=== PATIENT | male | born 1965 | race Caucasian/White ===

== ENCOUNTER 2021-03-05 14:59 | Outpatient (CLI) | payer OTHER, SELFPAY ==
--- NOTE | 2021-03-05 14:15 | DI.RAD_ITS ---
Exam(s) XR HIP RT COMPLETE AP PELVIS EXAM: XR HIP RT COMPLETE AP PELVIS CLINICAL HISTORY: pain in hip. TECHNIQUE: 2D digital imaging was performed. COMPARISON: CR ORTHO PELVIS AND LAT HIP RT 1 VW from 09/30/2019 FINDINGS: There is no evidence of pelvic nor hip fracture but there is significant degenerative changes in the right hip joint mild joint space narrowing and marginal osteophytes in the right femoral head again n oted, further increased in size when compared to 10/14. The opposite-left hip remains unremarkable. Sacroiliac joints unremarkable. IMPRESSION: DATA REPOSITORY: RADIATION DOSE DELIVERED:
--- OUTSIDE RECORDS SUMMARY | 2021-03-05 15:01 | XMS_ITS ---
:1965 Author Care Team Providers Name Role Phone ALESSIO MIRANDA MD Primary Care Provider [phone] Allergies Code Code System Name Reaction Severity Status Onset Insect Venom Anaphylaxis ? Active ? NKDA ? Medications Name Status Start Date Stop Date ? ? Auvi-Q 0.3 mg/0.3 mL injection, auto-injector Completed 02/19/2016 1 (one) Soln Auto-inj: as needed cephalexin 500 mg capsule Completed ? 2017 neomycin 3.5 mg/g-polymyxin B Completed ? 10,000 unit/g-dexameth 0.1 % eye oint Problems Name Status Onset Date Source ? Hyperlipidemia Active ? History Anemia Active ? History Epididymitis Active ? History Lateral Epicondylitis Active ? History Strain of Muscle And/or Tendon of Thigh Active ? History Adult Health Examination Active ? 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 Histor y Procedure by Method Unknown ? History Procedures Date Name Performed by ? 05/09/2017 Colonoscopy Information not avai lable 08/25/2003 Vasectomy Information not avai lable ? Hernia Repair Information not avai lable Notes: infant 1966. 05/13/2018 XR, Hip, Unilateral, 2 or 3 View [facility] Radiology (Internal) [address] [place] [address] (Work Place) 09/30/2019 XR, Hip + Pelvis, Unilateral, 1 View [facility] Radiology (Internal) [address] [place] [address] (Work Place) Results Lab Results Date Name Specimen Result Interpretation Description Value Range Status Address ? 05/23/2020 CBC W/ Auto BLD ? Wbc 6.0 5.0-10.0 Final [place] Diff 10*3/uL 10*3/uL [facility] ab (Internal) : [address] ? ? BLD Low Rbc 3.97 4.60-6.00 Final [place] 10*6/uL 10*6/uL [facility] (Internal) : [address] ? ? BLD Low Hgb 12.3 g/dL 14.0-18.0 Final Nort h g/dL [facility] (Internal) : [address] ? ? BLD Low Hct 37.6 % 41.0-51.0 Final [facility] L ab (Internal) : [address] ? ? BLD ? Mcv 94.7 fL 80.0-96.0 Final [facility] L ab (Internal) : [address] ? ? BLD ? Mch 31.0 pg 26.0-32.0 Final [facility] L [facility] (Internal) : [address] ? ? BLD ? Mchc 32.7 g/dL 31.0-35.0 Final Nort h g/dL [facility] (Internal) : [address] ? ? BLD ? Rdw 12.2 % 11.5-14.5 Final [facility] L ab (Internal) : [address] ? ? BLD ? Plt 256 130-450 Final [place] 10*3/uL 10*3/uL [facility] (Internal) : [address] ? ? BLD ? Anc 4.31 ? Final [place] 10*3/uL [facility] (Internal) : [address] ? ? BLD High Nlr 4.18 0.00-3.20 Final [facility] (Internal) : [address] ? ? BLD ? Neutro 72.4 % 40.0-75.0 Final [facility] L ab (Internal) : [address] ? ? BLD Low Lymph 17.3 % 20.0-50.0 Final [facility] L ab (Internal) : [address] ? ? BLD ? [place] 7.9 % 2.0-10.0 % Final [facility] (Internal) : [address] ? ? BLD ? Eos 1.5 % 1.0-6.0 % Final [facility] (Internal) : [address] ? ? BLD ? Baso 0.7 % 0.0-1.0 % Final [facility] (Internal) : [address] ? ? BLD ? Ig 0.2 % 0.0-0.9 % Final [facility] (Internal) : [address] 05/23/2020 Lipid Panel, S High Chol 238 mg/dL 50-200 Karma l [place] Serum mg/dL [facility] (Internal) : [address] ? ? S ? Trig 91 mg/dL 10-150 Final [place] mg/dL [facility] (Internal) : [address] ? ? S ? Hdl 50 mg/dL 40-60 Final [place] mg/dL [facility] (Internal) : [address] ? ? S High Ldl 170 mg/dL 0-130 Final [place] mg/dL [facility] (Internal) : [address] 05/23/2020 PSA, Serum or S ? PSA 0.6 NG/mL 0.0-4.0 Fi nal [place] Plasma Scrn NG/mL [facility] (Internal) : [address] 05/17/2019 CBC W/ Auto BLD Low Wbc 4.9 5.0-10.0 Final [place] Diff 10*3/uL 10*3/uL [facility] (Internal) : [address] ? ? BLD Low Rbc 4.29 4.60-6.00 Final [place] 10*6/uL 10*6/uL [facility] (Internal) : [address] ? ? BLD Low Hgb 12.9 g/dL 14.0-18.0 Final Nort h g/dL [facility] (Internal) : [address] ? ? BLD Low Hct 40.0 % 41.0-51.0 Final [facility] (Internal) : [address] ? ? BLD - Mcv 93.2 fL 80.0-96.0 Final [facility] ([facility] : [address] ? ? BLD - Mch 30.1 pg 26.0-32.0 Final [facility] L ab (Internal) : [address] ? ? BLD - Mchc 32.3 g/dL 31.0-35.0 Final Nort h g/dL [facility] (Internal) : [address] ? ? BLD - Rdw 11.7 % 11.5-14.5 Final [facility] (Internal) : [address] ? ? BLD - Plt 254 130-450 Final [place] 10*3/uL 10*3/uL [facility] (Internal) : [address] ? ? BLD - Anc 2.73 ? Final [place] 10*3/uL [facility] (Internal) : [address] ? ? BLD - Neutro 55.9 % 40.0-75.0 Final [facility] (Internal) : [address] ? ? BLD - Lymph 31.1 % 20.0-50.0 Final [facility] (Internal) : [address] ? ? BLD - [place] 9.6 % 2.0-10.0 % Final [facility] (Internal) : [address] ? ? BLD - Eos 2.2 % 1.0-6.0 % Final [facility] (Internal) : [address] ? ? BLD - Baso 0.8 % 0.0-1.0 % Final [facility] (Internal) : [address] ? ? BLD - Ig 0.4 % 0.0-0.9 % Final [facility] (Internal) : [address] 05/17/2019 BMP, Serum or S - g/r 96 mg/dL 74-106 [place] Plasma mg/dL [facility] (Internal) : [address] ? ? S - Bun 10 mg/dL 9-20 mg/dL Final Nort [facility] (Internal) : [address] ? ? S - Crea 0.90 0.66-1.25 Final [place] mg/dL mg/dL [facility] (Internal) : [address] ? ? S - Ca 9.1 mg/dL 8.4-10.2 Final [place] mg/dL [facility] (Internal) : [address] ? ? S - Na 141 137-145 Final [place] mmol/L mmol/L [facility] (Internal) : [address] ? ? S - K 3.9 3.5-5.1 Final [place] mmol/L mmol/L [facility] (Internal) : [address] ? ? S - Cl 105 98-107 Final [place] mmol/L mmol/L [facility] (Internal) : [address] ? ? S - Tco2 27.0 22.0-30.0 Final [place] mmol/L mmol/L [facility] (Internal) : [address] 05/17/2019 Lipid Panel, S High Chol 222 mg/dL 50-200 Kar[place] Serum mg/dL [facility] (Internal) : [address] ? ? S - Trig 97 mg/dL 10-150 Final [place] mg/dL [facility] (Internal) : [address] ? ? S - Hdl 53 mg/dL 40-60 Final [place] mg/dL [facility] (Internal) : [address] ? ? S High Ldl 150 mg/dL 0-130 Final [place] mg/dL [facility] (Internal) : [address] 05/17/2019 PSA, Serum or S - PSA 0.5 NG/mL 0.0-4.0 Fi nal [place] Plasma Scrn NG/mL [facility] (Internal) : [address] 05/14/2018 CBC W/ Auto BLD - Wbc 5.0 5.0-10.0 Final [place] Diff 10*3/uL 10*3/uL [facility] (Internal) : [address] ? ? BLD Low Rbc 4.11 4.60-6.00 Final [place] 10*6/uL 10*6/uL [facility] (Internal) : [address] ? ? BLD Low Hgb 12.2 g/dL 14.0-18.0 Final Nort h g/dL [facility] (Internal) : [address] ? ? BLD Low Hct 37.9 % 41.0-51.0 Final [facility] L ab (Internal) : [address] ? ? BLD - Mcv 92.2 fL 80.0-96.0 Final [facility] L ab (Internal) : [address] ? ? BLD - Mch 29.7 pg 26.0-32.0 Final [facility] L ab (Internal) : [address] ? ? BLD - Mchc 32.2 g/dL 31.0-35.0 Final Nort h g/dL [facility] (Internal) : [address] ? ? BLD - Rdw 12.0 % 11.5-14.5 Final [facility] ab (Internal) : [address] ? ? BLD - Plt 250 130-450 Final [place] 10*3/uL 10*3/uL [facility] (Internal) : [address] ? ? BLD - Anc 2.86 ? Final [place] 10*3/uL [facility] (Internal) : [address] ? ? BLD - Neutro 57.3 % 40.0-75.0 Final [facility] L [facility] (Internal) : [address] ? ? BLD - Lymph 30.1 % 20.0-50.0 Final [facility] L [facility] (Internal) : [address] ? ? BLD - [place] 8.2 % 2.0-10.0 % Final [facility] L ab (Internal) : [address] ? ? BLD - Eos 3.4 % 1.0-6.0 % Final [facility] L ab (Internal) : [address] ? ? BLD - Baso 0.8 % 0.0-1.0 % Final [facility] (Internal) : [address] ? ? BLD - Ig 0.2 % 0.0-0.9 % Final [facility] (Internal) : [address] 05/14/2018 Lipid Panel, S High Chol 214 mg/dL 50-200 Karma l [place] Serum mg/dL [facility] (Internal) : [address] ? ? S - Trig 82 mg/dL 10-150 Final [place] mg/dL [facility] (Internal) : [address] ? ? S - Hdl 48 mg/dL 40-60 Final [place] mg/dL [facility] (Internal) : [address] ? ? S High Ldl 150 mg/dL 0-130 Final [place] mg/dL [facility] (Internal) : [address] 02/24/2017 Venipuncture BLD ? Venpn* ? ? Final [facility] (Internal) : [address] 02/24/2017 CBC W/ Auto BLD ? Wbc 5.1 5.0-10.0 Final [place] Diff 10*3/uL 10*3/uL [facility] (Internal) : [address] ? ? BLD Low Rbc 4.34 4.60-6.00 Final [place] 10*6/uL 10*6/uL [facility] (Internal) : [address] ? ? BLD Low Hgb 13.1 g/dL 14.0-18.0 Final Nort h g/dL [facility] (Internal) : [address] ? ? BLD Low Hct 39.8 % 41.0-51.0 Final [facility] L ab (Internal) : [address] ? ? BLD ? Mcv 91.7 fL 80.0-96.0 Final [facility] L ab (Internal) : [address] ? ? BLD ? Mch 30.2 pg 26.0-32.0 Final [facility] L ab (Internal) : [address] ? ? BLD ? Mchc 32.9 g/dL 31.0-35.0 Final Nort h g/dL [facility] (Internal) : [address] ? ? BLD ? Rdw 11.9 % 11.5-14.5 Final [facility] L ab (Internal) : [address] ? ? BLD ? Plt 263 130-450 Final [place] 10*3/uL 10*3/uL [facility] (Internal) : [address] ? ? BLD ? Anc 2.80 ? Final [place] 10*3/uL [facility] (Internal) : [address] ? ? BLD ? Neutro 54.4 % 40.0-75.0 Final [facility] L ab (Internal) : [address] ? ? BLD ? Lymph 33.7 % 20.0-50.0 Final [facility] L ab (Internal) : [address] ? ? BLD ? [place] 8.4 % 2.0-10.0 % Final [facility] (Internal) : [address] ? ? BLD ? Eos 2.3 % 1.0-6.0 % Final [facility] (Internal) : [address] ? ? BLD ? Baso 1.0 % 0.0-1.0 % Final [facility] (Internal) : [address] ? ? BLD ? Ig 0.2 % 0.0-0.9 % Final [facility] (Internal) : [address] 02/24/2017 Lipid Panel, S High Chol 258 mg/dL 50-200 [place] Serum mg/dL [facility] (Internal) : [address] ? ? S ? Trig 79 mg/dL 10-150 Final [place] mg/dL [facility] (Internal) : [address] ? ? S ? Hdl 57 mg/dL 40-60 Final [place] mg/dL [facility] (Internal) : [address] ? ? S High Ldl 185 mg/dL 0-130 Final [place] mg/dL [facility] (Internal) : [address], [place] [address] Past Encounters 05/22/2020 Adult Health Examination Alessio Miranda MD: [address] [place] [address], Ph. 04/05/2020 Psoas Syndrome Alessio Miranda MD: [address] [place] [address], Ph. 09/30/2019 Pain in Right Hip Joint Justyna Sandoval PA-C: [address] [facility], [address], [place] [address], Ph. 09/16/2019 Pain in Right Hip Joint Alessio Miranda MD: [address] [place] [address], Ph. Social History Tobacco Smoking Status Never Smoker Vaccine List Vaccine Type COVID-19 vaccine, vector-nr, [id number], PF , 0.5 mL 11/22/2020 influenza, injectable, quadrivalent 05/25/2019 influenza, injectable, quadrivalent, pre servative free 05/22/2020 influenza, seasonal, injectable 06/11/2010 05/25/2016 influenza, seasonal, injectable, preserv ative free 07/25/2009 06/03/2011 Tdap 10/29/2010 Plan of Care Reminders Provider Appointments None ? ? recorded. Lab None ? ? recorded. Referral None ? ? recorded. Procedures None ? ? recorded. Surgeries None ? ? recorded. Imaging None ? ? recorded. Vitals 05/22/2020 02:40PM CPE 40 Height Weight BMI Blood Pressure 173.36 cm 67.4 kg 22.4 kg/m2 110/70 mm[Hg] 04/05/2020 09:00AM Acute 20 Height Weight BMI Blood Pressure 173.36 cm 68.95 kg 22.9 kg/m2 104/66 mm[Hg] 09/30/2019 09:00AM Consult 30 Height Weight BMI 173.36 cm 65.77 kg 21.9 kg/m2 09/16/2019 02:20PM Acute 20 Height Weight BMI Blood Pressure 173.36 cm 69.35 kg 23.1 kg/m2 122/82 mm[Hg] 05/17/2019 02:40PM CPE 40 Height Weight BMI Blood Pressure 173.36 cm 67.39 kg 22.4 kg/m2 118/76 mm[Hg] 05/13/2018 02:00PM CPE 40 Height Weight BMI Blood Pressure 173.99 cm 67.7 kg 22.4 kg/m2 104/64 mm[Hg] 02/24/2017 Weight Blood Pressure 68.35 kg 120/80 mm[Hg] 11/04/2016 Weight Blood Pressure 71.76 kg 128/80 mm[Hg] 08/15/2016 Height Weight Blood Pressure 172.72 cm 70.31 kg 138/86 mm[Hg] 02/19/2016 Height Weight Blood Pressure 172.72 cm 67.95 kg 102/78 mm[Hg] 02/13/2015 Height Weight Blood Pressure 172 cm 67.05 kg 120/76 mm[Hg] 02/14/2012 Height Weight Blood Pressure 175.26 cm 65.77 kg 118/79 mm[Hg] 04/07/2006 Height Weight Blood Pressure 175.26 cm 68.04 kg 112/70 mm[Hg]
== END 2021-03-05 15:00 | disposition home or self-care (01) ==
LOC: DIORS 14:59
PROVIDERS: PCP Family Medicine; Referring Provider Family Medicine; Visit Provider Physician Assistant Surgical
DX: M16.11 Unilateral primary osteoarthritis, right hip (principal)
CPT/HCPCS: 73502

== ENCOUNTER 2021-03-22 03:03 | Outpatient (CLI) | payer OTHER, SELFPAY ==
--- NOTE | 2021-03-22 08:15 | DI.RAD_ITS ---
Exam(s) RF JOINT INJECTION FLUORO GUID EXAM: RF JOINT INJECTION FLUORO GUID CLINICAL HISTORY: R HIP INJ UNDER FLUORO,oa rt hip, m16.11 TECHNIQUE: Fluoroscopy provided. Radiologist not present. CONTRAST MATERIAL: None COMPARISON: No exams were available for comparison FINDINGS: Fluoroscopy was provided for Dr. Cooper during right hip therapeutic injection.. Submitted image(s) reveal needle placement at the lateral aspect of the femoral head-neck junction. Intra-articular contrast was injected. Please refer to the procedure report for complete details. Cumulative Dose: [place]=3.80. mGy IMPRESSION: RADIATION DOSE DELIVERED:
--- NOTE | 2021-03-22 14:26 | W.PROCNOTE ---
Date of service: 03/22/21 Time of Service: 14:26 Procedure Note Date of procedure: 03/22/21 Procedure: Right Hip Injection with Fluoroscopic Guidance Surgeon/Proceduralist/Physician: Ángel Cooper Procedure Diagnosis: Right Hip Osteoarthritis Procedure Indications: León has had persistent pain of the RIGHT hip and groin. Noninvasive measures have been tried. To serve as both diagnostic and therapeutic, an injection under fluoroscopy was recommended. I had discussed the risks of the procedure and the patient elected to proceed. Procedure Description: León was greeted in the flouroscopy room. The correct side was identified and the consent was reviewed with the patient and signed. The patient was then placed in the supine position on the fluoroscopy table. The RIGHT hip was then prepped with Chloraprep. The anterolateral injection starting point was identiifed by bony landmarks and fluoroscopy. The skin and soft tissue in the tract of the injection was anesthetized with 1% Lidocaine. A spinal needle was then inserted deep into the hip joint at the level of the lateral femoral neck under fluoroscopic guidance. A small amount of Omnipaque solution was injected to confirm intraarticular placement. Once confirmed, the hip was injected with 6cc of 0.5% Bupivicaine and 80mg of Depo-Medrol. A bandaid was placed on the injection site. The patient tolerated the procedure well and noted improvement in pre-injection pain.
[2021-03-22] MEDS: methylPREDNISolone ACETATE 80 MG/ML VIAL IM (14:27)
[2021-03-22] MEDS: Omnipaque 300 MG/ML 10 ML BTL IJ (14:28)
[2021-03-22] MEDS: Bupivacaine 0.5% Pres-Free 10 ML VIAL IJ (14:29)
== END 2021-03-22 03:23 ==
PROVIDERS: PCP Family Medicine; Visit Provider Student in an Organized Health Care Education/Training Program
DX: M16.11 Unilateral primary osteoarthritis, right hip (principal); M25.551 Pain in right hip; R10.31 Right lower quadrant pain
CPT/HCPCS: 77002; J1040

== ENCOUNTER 2021-06-12 10:36 | Outpatient (CLI) | payer OTHER, SELFPAY ==
--- NOTE | 2021-06-12 10:30 | RT.EKG_ITS ---
APPROVED REPORT Exam: Resting ECG Reason for Exam: anton Patient Location: O HR:55 bpm ECG Measurements Heart Rate 55 AXIS SC 176 P 36 QRSd 96 QRS 23 QT 390 T 38 QTc 373 Conclusion Sinus rhythm...normal P axis, V-rate 50- 99 Normal Electrocardiogram
== END 2021-06-12 10:37 | disposition home or self-care (01) ==
LOC: DI.CARD 10:37
PROVIDERS: PCP Family Medicine; Visit Provider Internal Medicine Cardiovascular Disease
DX: R00.1 Bradycardia, unspecified (principal)
CPT/HCPCS: 93010

== ENCOUNTER 2021-08-13 15:00 | Outpatient (CLI) | payer OTHER, SELFPAY ==
--- NOTE | 2021-08-13 14:00 | DI.RAD_ITS ---
Exam(s) XR PELVIS AP EXAM: XR PELVIS AP INDICATION: preoperative. COMPARISON: CR XR HIP RT COMPLETE AP PELVIS from 03/05/2021 TECHNIQUE: 2D digital imaging was performed. FINDINGS: An AP view of the pelvis with template ball in place was performed. Prominent spurring at the margin of the right femoral head is again noted. There is [id number] right acetabular spurring. DATA REPOSITORY: RADIATION DOSE DELIVERED:
== END 2021-08-13 15:01 | disposition home or self-care (01) ==
LOC: DIORS 15:01
PROVIDERS: PCP Family Medicine; Visit Provider Physician Assistant Surgical
DX: M16.11 Unilateral primary osteoarthritis, right hip (principal)
CPT/HCPCS: 72170

== ENCOUNTER 2021-08-20 04:15 | Outpatient (CLI) | payer OTHER, SELFPAY ==
[2021-08-20 09:02] LABS: HCT 38.5 % (40.0-50.0); HGB 12.4 g/dL (13.5-17.5); MCH 30.2 pg (27.0-33.0); MCHC 32.2 % (32.0-36.0); MCV 93.9 fL (80-95); MPV 9.1 fL (8.0-11.0); Platelet Count 290 10^3/uL (130-400); RDW 11.9 % (11.8-14.1); RDW-SD 40.9 fL; WBC 4.49 10^3/uL (4.4-10.8)
[2021-08-20 10:10] LABS: Anion Gap 7.7 mmol/L (3-11); BUN 18 mg/dL (7-18); CO2 28.3 mmol/L (21.0-32.0); Calcium 8.9 mg/dL (8.5-10.1); Chloride 103 mmol/L (98-107); Glucose 92 mg/dL (74-106); Potassium 4.5 mmol/L (3.5-5.1); Sodium 139 mmol/L (136-145)
[2021-08-20 10:43] LABS: Source Nasal/Nares
[2021-08-20 18:17] LABS: COVID-19 PCR Negative (Negative)
== END 2021-08-20 04:16 | disposition home or self-care (01) ==
LOC: LBO 04:15
PROVIDERS: PCP Family Medicine; Visit Provider Student in an Organized Health Care Education/Training Program
DX: M16.11 Unilateral primary osteoarthritis, right hip (principal); Z01.818 Encounter for other preprocedural examination; Z20.822 Contact with and (suspected) exposure to COVID-19
CPT/HCPCS: 36415; 80048; 85027; 86850; 86900; 86901; 87635

== ENCOUNTER 2021-08-21 08:26 | Day surgery (SDC) | payer OTHER, SELFPAY ==
[2021-08-21] VITALS (8 sets, daily range): BP systolic 122–139; BP diastolic 72–96; PULSE 42–59; RESP 11–18; TEMP 36.3–37; O2SAT 96–100; BMI 22.3
--- NOTE | 2021-08-21 06:57 | PDOC.DSDIS_ITS ---
Discharge Plan Disposition Patient Disposition: HOME Condition: Stable Discharge Details Reason For Visit: Right JOHN Attending Provider: Ángel Cooper Primary Care Provider: India Marie Home Meds and New Rx's Prescriptions: New acetaminophen 500 mg capsule 1,000 mg PO Q8H PRN PRNQty: 90 RF: 0 aspirin 81 mg tablet,delayed release (DR/EC) 81 mg PO BID Qty: 60 RF: 0 celecoxib [Celebrex] 200 mg capsule 200 mg PO BID Qty: 60 RF: 0 pantoprazole [Protonix] 40 mg tablet,delayed release (DR/EC) 40 mg PO DAILY Qty: 30 RF: 0 oxycodone 5 mg tablet 5 mg PO Q4H PRNQty: 18 RF: 0 Discharge Instructions Additional Instructions: Total Hip Discharge Instructions Activity: The most important activity is to walk. You should try to take short walks a few times a day. You have no restrictions on movement or positioning, but do not try to force what you do. You will find some stiffness and weakness with hip flexion (lifting your knee). Do not try to strengthen this too early, continue to practice walking and stairs and this will come. - Outpatient physical therapy can be helpful to help return you to a normal gait and improve your flexibility and strength. This can start around 2 weeks. For some patients, it?s not necessary. Usually this is determined at the time of discharge or at the first post-operative visit. - You should wear the SYL hose on both legs for 2 weeks. Dressing: Keep the surgical dressing in place for at least one week. After the first week it may be removed and replace with light gauze and tape or nothing. It may get wet after 3 days but avoid soaking the dressing. If it gets wet, just lightly pat dry. It is important to always keep some gauze between skin folds, especially when you are sitting. Spend some time with the wound exposed when you are lying flat as the incision does wrinkle onto itself. Medications: - You should take Tylenol and an anti-inflammatory Celebrex as your primary pain control medications. If the Celebrex is too expensive or not covered, please call the office for another alternative (Advil/Ibuprofen or Naproxen/Aleve). - You have been prescribed a stronger pain medication Oxycodone for breakthrough pain, take as needed as prescribed. - You have also been prescribed a stomach acid reduction agent Pantoprozole to help reduce stomach acid and reflux. - You will be taking Aspirin 81mg twice a day for DVT prevention unless instructed otherwise. - If you have constipation you should take Colace or Miralax (both [id number]). It takes most people 3-4 days to have a bowel movement. Follow-up: 2 weeks If you have any acute concerns or questions, please do not hesitate to contact the office at [phone]. You may contact Dr. Cooper with any questions after hours through the hospital at [phone] or on his cell phone at [phone]. Referrals: Ángel Cooper MD [ [facility] STAFF PHYSICIAN] - Equipment/Supplies: Walker Activity:: Activity as Tolerated Remove Dressings/Wound Care:: Do Not Remove Shower/Bathe:: 72 hours Diet:: As Tolerated Discharge Orders Discharge Orders: Discharge Order (Routine); Ordered 08/21/21 Ordered By: Tanesha Rosenthal DS: Diagnosis Discharge Diagnosis (1) Osteoarthritis of right hip: Status: Acute
--- NOTE | 2021-08-21 06:57 | ANES.PREOP_ITS ---
General Info Date of Service Date Performed: 08/21/21 Height: 5 ft 9 in Weight: 68.492 kg Body Mass Index (BMI): 22.3 Surgical Procedure: Operation Date: 08/21/21 11:20 Proposed Procedures Side Surgeon p Hip Total Hip Anterior Right Ángel Cooper MD Meds Allergies and Home Medications Allergies Allergy/AdvReac Type Severity Reaction Status Date / Time insect venom Allergy Verified 08/21/21 08:47 Home Medication Medication Instructions Recorded acetaminophen 1,000 mg PO Q8H PRN PRN #90 cap 08/21/21 aspirin 81 mg PO BID #60 tab 08/21/21 celecoxib [Celebrex] 200 mg PO BID #60 cap 08/21/21 oxycodone 5 mg PO Q4H PRN #18 tab 08/21/21 pantoprazole [Protonix] 40 mg PO DAILY #30 tab 08/21/21 Current Visit Medications: Current Medications Generic Name Dose Route Start Last Admin Trade Name Freq PRN Reason Stop Dose Admin Acetaminophen 1,000 mg 08/21/21 06:00 Acetaminophen 500 Mg Tab PO 08/21/21 16:00 PREOP AMY Celecoxib 400 mg 08/21/21 06:00 Celecoxib 200 Mg Cap PO 08/21/21 16:00 PREOP AMY Tranexamic Acid 1,000 mg/ 60 mls @ 360 mls/hr 08/21/21 06:00 Sodium Chloride IV 08/21/21 16:00 PREOP AMY Ringer's Solution 1,000 mls @ 80 mls/hr 08/21/21 06:00 IV 09/19/21 23:59 INFUSION AMY Cefazolin Sodium/Dextrose 2 gm in 50 mls @ 100 mls/hr 08/21/21 06:00 Ancef Duplex IVPB 08/21/21 16:00 PREOP [facility] IV Miscellaneous Supplies 1 each 08/21/21 06:00 Iv Access IV 09/19/21 23:59 DIRECTED AMY Sodium Chloride 0 ml 08/21/21 06:00 Normal Saline Flush 10 Ml Syr IV 09/19/21 23:59 PRN PRN Sodium Chloride 0 ml 08/21/21 06:00 Normal Saline 10 Ml Vial IJ 09/19/21 23:59 DIRECTED PRN Sterile Water 0 ml 08/21/21 06:00 Water,Injection,Sterile 10 Ml Vial IJ 09/19/21 23:59 DIRECTED PRN PFSH Active Problems Active Problems: Problem Status Onset Code Osteoarthritis of right hip M16.11 Bradycardia R00.1 Dizziness R42 Medical History Medical History Anemia COVID-19 pt. states end of april Epicondylitis Epididymitis HLD (hyperlipidemia) Strain of muscle, fascia and tendon of the posterior muscle group at thigh level, left thigh, initial encounter Surgical History Surgical History Colonoscopy - IV Sedation (05/09/17) H/O hernia repair H/O vasectomy Hx of colonoscopy Tobacco Smoking/Tobacco Use Status: Never Alcohol Alcohol Intake: current Alcohol intake frequency: 0-2 drinks per day Substance Use Substance use: Never Substance use type: does not use Vital Signs and Lab Results Vital Signs Most Recent Vital Signs in EMR: Temp Pulse Resp BP Pulse Ox 36.6 C 50 L 16 139/80 99 08/21/21 08:54 08/21/21 08:54 08/21/21 08:54 08/21/21 08:54 08/21/21 08:54 Lab Results Blood Type / Crossmatch: Patient ABO/Rh O Positive 08/20/21 08:59 08/20/21 Antibody Screen NEGATIVE 08/20/21 08:59 08/20/21 Complete Blood Count: White Blood Count 4.49 10^3/uL (4.4-10.8) 08/20/21 08:59 08/20/21 Red Blood Count 4.10 10^6/uL (4.36-5.78) L 08/20/21 08:59 08/20/21 Hemoglobin 12.4 g/dL (13.5-17.5) L 08/20/21 08:59 08/20/21 Hematocrit 38.5 % (40.0-50.0) L 08/20/21 08:59 08/20/21 Platelet Count 290 10^3/uL (130-400) 08/20/21 08:59 08/20/21 Complete Metabolic Panel: Sodium Level 139 mmol/L (136-145) 08/20/21 08:59 08/20/21 Potassium Level 4.5 mmol/L (3.5-5.1) 08/20/21 08:59 08/20/21 Chloride Level 103 mmol/L (98-107) 08/20/21 08:59 08/20/21 Carbon Dioxide Level 28.3 mmol/L (21.0-32.0) 08/20/21 08:59 08/20/21 Blood Urea Nitrogen 18 mg/dL (7-18) 08/20/21 08:59 08/20/21 Creatinine 1.0 mg/dL (0.70-1.30) 08/20/21 08:59 08/20/21 Estimated GFR/1.73 m2 >= 60.00 (mL/min/1.73m2) 08/20/21 08:59 08/20/21 Calcium Level 8.9 mg/dL (8.5-10.1) 08/20/21 08:59 08/20/21 Glucose Level 92 mg/dL (74-106) 08/20/21 08:59 08/20/21 Liver Function Panel: No Data to Display Coagulation Panel: No Data to Display Cardiac Panel: No Data to Display Arterial Blood Gas: No Data to Display Venous Blood Gas: No Data to Display Pancreas Panel: No Data to Display Thyroid Panel: No Data to Display Infectious Disease: Coronavirus (COVID-19)(PCR) Negative (Negative) 08/20/21 09:35 08/20/21 Coronavirus 2019 Source Nasal/Nares 08/20/21 09:35 08/20/21 Blood Cultures: No Data to Display Toxicology Panel: No Data to Display Imaging and Studies Imaging and Studies Study information below may be from another EMR and interpreted by another provider. Please see original notes in EMR for more complete details. EKG Summary: 05/2021: sinus Anesthesia Assessment and Plan Anesthesia History Personal History: No History of Anesthesia Complications Family History: No Family History of Anesthesia Complications Exercise Tolerance Exercise Tolerance: Metabolic Equivalents>4 Cardiac & Pulmonary Exam Cardiac Exam: Normal S1/S2 Heart Sounds Pulmonary Exam: Clear Bilateral Breath Sounds Implantable Cardiac Device Does patient have a Pacemaker or an ICD?: No Airway Exam Known Difficult Airway: No Mallampati Class: 2 Mouth Opening: Normal (> 3cm) Thyromental Distance: Less than 3 cm Neck Range of Motion: Full ROM Neck Circumference: Normal Teeth Condition: Normal Dentition ASA Classification ASA Score: ASA 2 Emergency Case?: No NPO Status NPO Status: NPO Clears >2 hours, Solids >8 hours Anesthesia Plan Resuscitation Status: Full Code Anesthesia Technique: Spinal Anesthesia Airway Planned: Natural Airway Monitors Used: Standard Monitors Preoperative Comments:: 55 yo male for right JOHN. Sig PMHx: never smoker, occ EtOH, denies major issues.
[2021-08-21] MEDS: Acetaminophen 500 MG TAB 1000 MG PO (09:08)
[2021-08-21] MEDS: Celecoxib 200 MG CAP 400 MG PO (09:09)
[2021-08-21] MEDS: Lactated Ringers 1,000 ML 80 ML IV (09:29)
[2021-08-21] MEDS: ceFAZolin 2 GM/50 ML BAG IVPB (10:31)
--- NOTE | 2021-08-21 11:39 | DI.RAD_ITS ---
Exam(s) XR HIP RT IN OR EXAM: XR HIP RT IN OR CLINICAL HISTORY: OSTEOARTHRITIS RIGHT HIP TECHNIQUE: 2D and realtime digital imaging was performed. COMPARISON: No exams were available for comparison FINDINGS: C-arm fluoroscopy was utilized by Dr. Cooper during placement of right hip prosthesis. Hard copie s show acetabular and femoral components in good position. IMPRESSION: RADIATION DOSE DELIVERED: Kar=3.23 mGy
[2021-08-21] MEDS: Bupivacaine 0.25% Pres-Free 30 ML VIAL (11:42)
[2021-08-21] MEDS: Ketorolac 30 MG/ML VIAL (11:42)
--- NOTE | 2021-08-21 12:40 | W.ANESPOSTOP ---
Postoperative Evaluation Date, Time and Location Date Performed: 08/21/21 Time Performed: 12:41 Patient Location: PACU Vital Signs Most Recent Imported Vital Signs: Most Recent Vital Signs Temp Pulse Resp BP Pulse Ox 36.5 C 42 L 11 L 128/96 H 100 08/21/21 12:31 08/21/21 12:31 08/21/21 12:31 08/21/21 12:31 08/21/21 12:31 Pain Score Most Recent Pain Score: Most Recent Pain Score Pain Level 3 08/21/21 12:31 Assessment Mental Status: Awake (Alert & Oriented to Patient Baseline) Airway and Respiratory Function: Patent airway with normal (patient baseline) respiratory exam Cardiovascular Function: Hemodynamically Stable Hydration Status: Adequately Hydrated Nausea & Vomiting: No Nausea or Vomiting Pain: Pt. Denies Any Pain Peripheral Nerve Block: Patient did not receive a nerve block
[2021-08-21] MEDS: oxyCODONE 5 MG TAB PO (12:59)
--- NOTE | 2021-08-21 13:35 | PT.INIE ---
Date of service: 08/21/21 Time of Service: 13:35 PT Notes Visit Reasons: Right JOHN Physical Therapy Day Surgery Initial Evaluation Date: 08/21/2021 Referring Doctor: MADELEINE Zhu PT Orders: PT CONSULT: S/P Ortho Surgery Precautions: WBAT on R LE with AD. Patient Profile/Admitting Diagnosis: León is a 55-year-old female with osteoarthritis of the R hip and is S/P right anterior total hip arthroplasty on postoperative day 0. PMHX: Medical History Anemia Epicondylitis Epididymitis HLD (hyperlipidemia) Strain of muscle, fascia and tendon of the posterior muscle group at thigh level, left thigh, initial encounter Surgical History Colonoscopy - IV Sedation (05/09/17) H/O hernia repair H/O vasectomy Hx of colonoscopy Social History/Home Situation: Lives with in a private home with 4 steps to enter with no rails. Still works time checker. Independent with all aspects of ADLs prior to surgery. No falls in the past 12 months. Equipment Owned/DME: Bilateral axillary crutches Subjective: Agreeable to PT consult. Reports pain in the right hip that 5/10 at rest. Denies numbness and tingling in B LE. Denies headache, chest pain, and lightheadedness throughout session. Objective: General Observation: Mepilex Ag over surgical incision. TEDS to B LE. Mental Status: Alert and oriented x1 Pain: 5/10 in the right hip and thigh at rest that subsided with ambulation ROM: Right Lower Extremity: Hip flexion WFL. Hip abduction WFL. Knee flexion WFL. Ankle dorsiflexion WFL. Ankle plantarflexion WFL. Left Lower Extremity: Hip flexion WFL. Hip abduction WFL. Knee flexion WFL. Ankle dorsiflexion WFL. Ankle plantarflexion WFL. Strength: Right Lower Extremity: Hip flexors 4/5. Hip abductors 4/5. Knee flexors 5/5. Knee extensors 4/5. Ankle dorsiflexors 5/5. Ankle plantarflexors 5/5. Left Lower Extremity:Hip flexors 5/5. Hip abductors 5/5. Knee flexors 5/5. Knee extensors 5/5. Ankle dorsiflexors 5/5. Ankle plantarflexors 5/5. Sensation: Intact as to pain and light pressure in bilateral lower extremities Bed Mobility/Transfers: Supine to sit independent Sit to stand contact-guard assist Stand to sit standby assist Bed to chair standby assist Gait: Instructed patient with level surface ambulation of 100 feet using bilateral axillary crutches with three-point gait pattern, weight bearing as tolerated on the right LE requiring only standby assist and minimal verbal cues for safe technique. Indicated that pain level subsided with movement and weight bearing. No LOB. No SOB. Stairs: Educated and trained on safe stair negotiation technique of 6 x 4?inch steps and 4 x 6 inch steps while using bilateral crutches with step-to pattern requiring contact-guard assist with no report of increased pain. No LOB. No SOB. Balance: Static Sitting: Normal Dynamic Sitting: Normal Static Standing: Fair Dynamic Standing: Fair Special Tests: Mobility Limitations Standardized Measure [facility] AM-PAC 6 clicks Basic Mobility Inpatient Short Form: Raw Score: 23 CMS Score: 11% deficit Informed Consent/Education: Patient instructed in purpose of PT consult. Education and training on initial set of exercises that can be done at home have been completed with patient. Assessment: León requires the use of bilateral axillary crutches for all mobility ADL performance to maximize independence and reduce fall risk. Will have the support of his DSU Nurse Valeria as he recovers. Patient presents with clinical signs and symptoms consistent with current/admitting diagnoses that have resulted to mobility limitations and gait instability as demonstrated by the following impairment level findings: 1. Decreased strength to right hip major muscle groups 2. Impaired standing balance Impairments are contributing to the following functional limitations: 1. Inability to safely ambulate without assistive device 2. Increase completion time for mobility ADL performance 3. Increased fall risk Patient is assessed as a 88101 moderate complexity based on the following: History: 55 [id number] with impairment level findings, functional limitations, and past medical history as indicated above Examination: Demonstrable impairment in strength, balance, and mobility level with underlying impairments and functional limitations as documented above Presentation: Evolving Decision Makin moderate complexity Goals: N/A. PT evaluation and 1-2 treatment sessions only for functional mobility training using recommended AD and for HEP instruction. Plan of Care/Treatment Plan: N/A. PT evaluation and 1-2 treatment session only for functional mobility training using recommended AD and for HEP instruction. DISCHARGE RECOMMENDATIONS: [] Home with no services [] [] Home with services [specify] [X] Home with outpatient PT. Home when medically cleared by orthopedic surgeon. May benefit from outpatient PT services in order to facilitate return to independent community ambulation and to full return to vocational activities without an assistive device. [] SNF for continued rehabilitation [] [] Residential Care [] [] SNF versus LTC based on ability to participate and progress [] TREATMENT CODE/TIME: 27562 x 20 minutes, 57111 x 24 minutes beginning at 13:35 PM. Thank you for the opportunity to participate in the care of this patient. Alice Duggan PT, DPT, CLT [facility] [place], [place]
--- NOTE | 2021-08-21 22:07 | ROE_ITS ---
Date of service: 08/21/21 Time of Service: 12:07 Operative Note Operative Note DATE OF PROCEDURE: 08/21/21 PRE-OP DIAGNOSIS: Right Hip Osteoarthritis POST-OP DIAGNOSIS: same PROCEDURE: Right Anterior Total Hip Arthroplasty SURGEON: Ángel Cooper SPRINKLER INSPECTOR: Tanesha Rosenthal ANESTHESIA TYPE: Spinal Refer to Anesthesia Record ESTIMATED BLOOD LOSS: 250 PATHOLOGY: none sent TOURNIQUET TIME: 0 COMPLICATIONS: None Patient was transported to: PACU Patient's condition: stable Implants: 1. Depuy [place] Acetabular Component, 56mm 2. Depuy Acetabular Liner, 91x60uc 3. Depuy Corail Standard Collared Femoral Stem, Size 11 4. Depuy Altrx Ceramic Femoral Head, Size 36+12mm Indications: I have seen León in clinic for symptoms of hip arthritis, confirmed with radiographic findings. León has exhausted nonoperative methods and was having significant limitations in daily function and desired better function and less pain. I discussed the technical details of a hip replacement. I explained the risks of the procedure to include, but not limited to, bleeding, infection, pain, stiffness, fracture, damage to nerves and vessels, damage to muscles and tendons, loosening, instability, leg length inequality, need for repeat procedure, blood clot and cardiopulmonary demise. Despite these risks, he elected to proceed. Findings: There was significant signs of arthritis throughout the hip with large osteophytes about the femoral head/neck and the floor of the acetabulum. Procedure Description: León was greeted in the preoperative holding area where the correct side was identified and marked. The consent was reviewed with the patient and signed. The history and physical was updated. All questions were answered. León was taken back to the operating room. A spinal anesthestic was then administered. The feet were wrapped with cast padding and Coban and then placed into the boot liners and then into the boots. Care was taken to protect the skin and make sure the heels were fully down and the boots were stable. The patient was then positioned onto the HANA table. Both legs were held in a neutral position. SCDs were applied. The patient was then slid down onto a peroneal post. Prophylactic antibiotics in the form of Cefazolin were administered. 1g of Tranxemic Acid was given intravenously within 30 minutes of incision. The right leg was then prepped with Chloraprep and draped in a standard fashion. A second prep with Chloraprep was performed prior to placement of a shower-curtain type drape with Iodine impregnated skin protection. A timeout to confirm correct identity, side and site, procedure, allergies, anesthesia, and medical concerns was performed. An obliquely oriented incision was made starting lateral to the ASIS and running distal over the Tensor Fascia Nilda (TFL) muscle belly toward the fibular head, approximately 10cm. The skin and soft tissue was dissected sharply, through Lucila?s fascia, and to the fascia of the TFL. With the fascia and superior border of the IT band identified, the fascia was incised with a new knife just above any perforators from the IT band. The TFL muscle belly was bluntly dissected away from the fascia and moved laterally. The fat between TFL and rectus was identified to ensure the dissection was not within the TFL. Blunt dissection created space between abductors and the capsule and retractor was placed over the lateral femoral neck. The fibers of the rectus femoris tendon were identified and these were freed from the anterior capsule. A second cobra retractor was placed around the medial femoral neck. The TFL was further retracted laterally to show the deep fascia. Careful dissection through this layer identified three main crossing vessels of the lateral femoral circumflex. These were cauterized in multiple locations and then cut without any noticeable bleeding. The TFL was further released bluntly from the deep fascia to expose anterior hip capsule and fat The Robin orthopaedic retractor was then placed beneath the TFL and against sartorius and medial soft tissues to protect and retract the soft tissues. A T-capsulotomy was then performed starting at the superior lateral acetabulum and moving distally to the intertrochanteric ridge. These capsular flaps were tagged with a No. 1 Ethibond and elevated from within. The capsular flaps were released to the shoulder of the lateral neck and to the lesser trochanter to give excellent visualization of the proximal femur. A neck osteotomy was performed using an oscillating saw based on preoperative templates. This cut started in the shoulder and of the lateral neck and exited medially. The saw was at all times directed medially to avoid injury to the greater trochanter. Gross traction was applied to the leg and the osteotomy opened. The femoral head was removed with a corkscrew, making sure to protect the TFL on its exit. Traction was released after head removal. This was measured on the back table to determine the starting reamer size. Portions of the rectus obscuring visualization were minimally elevated off the superior acetabulum. An anterior retractor was placed over the anterior wall between capsule and labrum and attached to the Gripper retraction system. The femur was rotated to 90 degrees and medial capsule was fully released until the lesser trochanter was palpable and visible; the femur was returned to 30 degrees. A posterior retractor was placed similarly between capsule and labrum. This provided excellent visualization. The contents of the cotyloid fossa were removed with electrocautery and the labrum was removed with a knife. There was a notable floor osteophyte. There was significant chondromalacia of the superior acetabulum. Acetabular reaming began with a 51mm reamer. This first reaming was directed anterior to posterior and medial to get down to the true floor. This was inspected and reamed until the true floor was reached. The anterior retractor was then released and entry and exit was provided by traction on the capsular flaps. I then reamed sequentially up to a 56mm reamer where good fit was obtained. The larger reamers were oriented based on anatomical reference of the anterior and lateral [place] to ensure proper abduction and anteversion. Positioning and size was confirmed with the fluoroscopy. A 56mm Depuy [place] acetabular component was selected. The acetabulum was reamed around the periphery with the selected acetabular size to prevent a rim fit. The deep tissues were irrigated. The acetabular component was then impacted in a position of about 40-45 degrees of abduction and 15-20 degrees of anteversion, using the patient?s anatomy as the ultimate landmark. Fluoroscopy was used to confirm this. There was excellent production pattern maker of the acetabular component and the inserting handle was removed. The acetabular liner, Depuy [id number] polyethylene liner, was inserted and lined up with the tines of the acetabular component. There was no soft tissue interposition. The liner was then impacted into position and confirmed to be well-seated. A portion of the aria-articular cocktail was then injected around the acetabulum into the capsule and periosteum. This cocktail consisted of 50cc of 0.25% Bupivicaine and 20cc of Exparel and 30mg of Ketorolac. The leg was rotated to 120 degrees. Any remaining medial capsule was released until the lesser trochanter was easily palpable. A retractor was placed medially. The lateral capsule was further released into the shoulder to allow access to the greater trochanter. A Ma retractor was placed over the greater trochanter which allowed the trochanter to flip in front of the capsule for excellent exposure. The leg was brought down into maximal extension and 20 degrees of adduction while ensuring there was no impingement on the acetabulum. Any remnant capsule within the trochanter was released. Piriformis and obturator externis were identified and protected. There was excellent access to the proximal femur. The lateral neck remnant was removed with a rongeur. A blunt canal probe was used to identify the canal and trajectory for later broaching. A box osteotome initiated the broach course. A small curved rasp and a curved curette were used to work laterally. Broaching then began with a size 8 Corail broach. This was inserted manually around the trochanter and into the canal before mallet blows. The broach was seated to a few millimeters below the cut level based on the neck cut and the preoperative template. Sequential broaching was continued with the Tybase pneumatic broaching device until a tight fit was obtained with good rotational control of the femur. The size 11 seem to seem safer than I would hope for. Therefore went up to a size 12. However, there was notable cortical contact size 12 which kept more proud. Therefore went back to the size 11 and planed this down. A trial high offset neck was inserted along with a +1.5 trial head. The leg was brought out of extension and adduction and then reduced with traction and internal rotation. The leg was stable anteriorly in a position of 30 degrees of extension and 90 degrees of external rotation. Fluoroscopy was used to ensure there was no fracture and the stem was seated well. Leg lengths were checked with an AP pelvis and pelvic reference points. [employer] navigation system was used to confirm appropriate positioning and leg length and offset. This seemed to overcorrect the offset undercorrected leg length. Radiographically his right leg was shorter although he symptomatically had no complaints of this. Therefore my goal was to at least restore his normal leg length and offset. Therefore, going to a +12 head with a standard neck corrected this perfectly. Once content with the desired offset and leg lengths, the leg was brought back into extension, external rotation and adduction. The periosteum and surrounding tissue was injected with remaining portion of the aria-articular cocktail. The proximal femur was irrigated as well as the deep tissues. The Depuy [place] standard collared stem, size 11, was then manually inserted into the proximal femur making sure to control rotation. It was then malleted into position with light blows, giving breaks to allow bone expansion and decrease risk of fracture. The selected Depuy Altrx Ceramic Head, size 36+12mm, was then placed onto the clean and dry trunnion and secured with impaction onto the tapered fit. The leg was brought back out of extension and adduction and reduced with traction and internal rotation. Stability was confirmed with no shuck at 90 degrees of external rotation and 30 degrees of extension. No impingement through range of motion arc. Final x-ray images were obtained with fluoroscopy to confirm adequate positioning and no intraoperative fracture. The deep tissues were thoroughly irrigated with Irrisept chlorhexadine solution. The capsule was then reapproximated with the previously placed Ethibond sutures. The TFL fascia was finally closed with a No. 2 Stratafix, barbed suture. Deep tissues were then reapproximated with 0 Vicryl and a running 2-0 Vicryl. The skin was closed with a running 4-0 Monocryl in a subcuticular fashion. This was reinforced with skin glue. A Mepilex silver dressing was applied. At the end of the case, all counts were correct. León was transferred to the hospital bed without difficulty and suffering no apparent complication. León has a good prognosis. Physical therapy will start today and without restrictions, weight-bearing as tolerated. Aspirin 81 mg twice daily will be used for DVT prophylaxis.
== END 2021-08-21 14:45 | disposition home or self-care (01) ==
LOC: SUR 08:27
PROVIDERS: PCP Family Medicine; Visit Provider Student in an Organized Health Care Education/Training Program
PROC: (CPT 27130; principal; 2021-08-21 11:00)
DX: M16.11 Unilateral primary osteoarthritis, right hip (principal); D64.9 Anemia, unspecified; E78.5 Hyperlipidemia, unspecified
CPT/HCPCS: 27130; 20985; 97162; 97530; 73501; J0690; J1100; J1885; J2250; J2405; J2704

== ENCOUNTER 2021-09-03 13:01 | Outpatient (CLI) | payer OTHER, SELFPAY ==
--- NOTE | 2021-09-03 12:15 | DI.RAD_ITS ---
Exam(s) XR HIP RT COMPLETE AP PELVIS EXAM: XR HIP RT COMPLETE AP PELVIS INDICATION: 1ST POST OP R JOHN. COMPARISON: CR XR PELVIS AP from 08/13/2021 XR HIP RT IN OR from 08/21/2021 TECHNIQUE: 2D digital imaging was performed. FINDINGS: There has been no change in the alignment of the right hip prosthesis. No abnormal bony lucencies ar e seen. Left hip is unremarkable. DATA REPOSITORY: RADIATION DOSE DELIVERED:
== END 2021-09-03 13:02 | disposition home or self-care (01) ==
LOC: DIORS 13:01
PROVIDERS: PCP Family Medicine; Referring Provider Family Medicine; Visit Provider Physician Assistant
DX: Z96.641 Presence of right artificial hip joint (principal); Z47.1 Aftercare following joint replacement surgery
CPT/HCPCS: 73502

== ENCOUNTER 2022-08-30 08:15 | Outpatient (CLI) | payer OTHER, SELFPAY ==
--- NOTE | 2022-08-30 08:20 | DI.RAD_ITS ---
Exam(s) XR HIP RT AP LAT ONLY EXAM: XR HIP RT AP LAT ONLY INDICATION: JOHN. COMPARISON: CR XR HIP RT COMPLETE AP PELVIS from 09/03/2021 TECHNIQUE: 2D digital imaging was performed. Two views. FINDINGS: There has been no change in the alignment of the right prosthesis. No fracture or other suspicious b bismark lucency. DATA REPOSITORY: RADIATION DOSE DELIVERED:
== END 2022-08-30 08:16 | disposition home or self-care (01) ==
LOC: DIORS 08:16
PROVIDERS: PCP Family Medicine; Referring Provider Family Medicine; Visit Provider Student in an Organized Health Care Education/Training Program
DX: Z96.641 Presence of right artificial hip joint (principal)
CPT/HCPCS: 73502

== ENCOUNTER 2023-08-29 09:23 | Outpatient (CLI) | payer OTHER, SELFPAY ==
--- NOTE | 2023-08-29 07:45 | DI.RAD_ITS ---
Exam(s) XR HIP RT AP LAT ONLY EXAM: XR HIP RT AP LAT ONLY CLINICAL HISTORY: annual f/u R JOHN. TECHNIQUE: 2D digital imaging was performed. Two images were obtained. AP and lateral views were ob tained. COMPARISON: CR XR HIP RT AP LAT ONLY from 08/30/2022 FINDINGS: BONES: There are stable post operative changes of a right total hip replacement present. No fracture or dislocation. JOINTS: The orthopedic hardware is in good position. No evidence of hardware loosening. SOFT TISSUE: Surgical clips inferior to the pelvis likely reflecting prior vasectomy. IMPRESSION: Stable postoperative changes. DATA REPOSITORY: RADIATION DOSE DELIVERED:
== END 2023-08-29 09:24 | disposition home or self-care (01) ==
LOC: DIORS 09:23
PROVIDERS: PCP Family Medicine; Visit Provider Student in an Organized Health Care Education/Training Program
DX: Z96.641 Presence of right artificial hip joint (principal); Z47.1 Aftercare following joint replacement surgery
CPT/HCPCS: 73502

== ENCOUNTER 2024-11-12 08:29 | Outpatient (CLI) | payer OTHER, SELFPAY ==
[2024-11-12 12:37] LABS: HCT 41.5 % (40.0-50.0); HGB 13.5 g/dL (13.5-17.5); MCH 30.5 pg (27.0-33.0); MCHC 32.5 % (32.0-36.0); MCV 94 fL (80-95); Platelet Count 271 10^3/uL (130-400); RBC 4.43 10^6/uL (4.36-5.78); RDW 11.8 % (11.8-14.1); RDW-SD 41.1 fL; WBC 3.83 10^3/uL (4.4-10.8)
[2024-11-12 12:51] LABS: Hemoglobin A1C 5.7 % (<5.7)
[2024-11-12 13:03] LABS: Calculated LDL 182 mg/dL (<100); Cholesterol 268 mg/dL (<200); Ferritin 67 ng/mL (26-388); HDL Cholesterol 74 mg/dL (>or=40); Triglyceride 60 mg/dL (<150)
[2024-11-12 13:44] LABS: Iron 101 ug/dL (65-175); Total Iron Binding Capacity 312 ug/dL (250-450)
[2024-11-12 17:48] LABS: PSA, Screening 0.6 ng/mL (<=3.5)
[2024-11-15 10:51] LABS: Transferrin 257 mg/dL (201-352)
== END 2024-11-12 08:30 | disposition home or self-care (01) ==
PROVIDERS: PCP Nurse Practitioner Family; Referring Provider Nurse Practitioner Family; Visit Provider Nurse Practitioner Family
DX: Z13.220 Encounter for screening for lipoid disorders (principal); D50.9 Iron deficiency anemia, unspecified; Z12.5 Encounter for screening for malignant neoplasm of prostate; Z13.1 Encounter for screening for diabetes mellitus; R00.1 Bradycardia, unspecified; E78.5 Hyperlipidemia, unspecified; N52.9 Male erectile dysfunction, unspecified; R06.02 Shortness of breath
CPT/HCPCS: 36415; 80061; 84153; 85027; 82728; 83036; 83540; 83550; 84466